=== PATIENT | female | born 1995 | race Caucasian/White ===

== ENCOUNTER 2023-07-02 19:32 | Emergency (ER) | payer OTHER, SELFPAY ==
[2023-07-02 19:33] VITALS: BP 130/94; PULSE 95; RESP 16; TEMP 35.9; O2SAT 99; BMI 26.8
--- NOTE | 2023-07-02 19:46 | US_ITS ---
INDICATION: bleeding EXAMINATION: US OB Transvaginal TECHNIQUE: Transvaginal (for optimal evaluation of the adnexa) pelvic ultrasound was performed. Grayscale, spectral waveform, and color flow Doppler evaluation of the adnexa. COMPARISON: None. FINDINGS: UTERUS: Measures 9.3 cm in length.. RIGHT OVARY: Measures 2.7 x 1.7 x 1.8 cm. Cystic area adjacent to the right ovary measures 1.9 x 1.6 cm.. LEFT OVARY: Measures 3.1 x 2.3 x 1.8 cm. Normal. FREE FLUID: None. INTRAUTERINE GESTATIONAL SAC(s) (size/shape): Possible gestational sac seen in the lower uterine segment with mean sac diameter of 0.7 cm. YOLK SAC: Not identified POLE: Not identified ESTIMATED GESTATION AGE: 5 weeks and 3 days. US/Transvaginal w/Preg US IMPRESSION: Intrauterine of uncertain viability. There is an intrauterine gestational sac abnormally positioned in the lower uterine segment with no yolk sac or embryo. Recommend serial beta hCGs and follow-up OB ultrasound in 1-2 weeks. 1.9 cm cystic lesion adjacent to the right ovary could represent a paraovarian cyst. Recommend close attention on follow-up ultrasound. Electronically Signed: John Lim MD at 23:35 EST ,
--- NOTE | 2023-07-02 19:47 | ED.VIS.FEGU ---
HPI HPI - Female History of Present Illness Chief Complaint: Vag Bld, Preg Informant: patient Narrative Narrative: Patient presents secondary to vaginal bleeding. She is currently 7 weeks with her first . She noted some very light spotting yesterday. She had some darker blood this morning then this evening had bright red blood with clots. She is having some cramping. She is scheduled to see the [facility] office this coming Monday. She is unsure of her blood type. PFSH PFSH Medical History ACL tear Asthma Home Medications tramadol 50 mg tablet 50 mg PO Q8H PRN pain #14 tabs 07/02/23 [Rx Last Taken Unknown] Allergy/AdvReac Type Severity Reaction Status Date / Time Sulfa (Sulfonamide Allergy Shortness Verified 07/02/23 19:33 Antibiotics) of breath Surgical History Hx of tonsillectomy Social History Smoking Status: Never smoker ROS ROS ED Constitutional Constitutional ED: Denies chills or fever(s) ENT ENT ED: Denies rhinorrhea or sore throat Cardiovascular Cardiovascular: Denies chest pain Respiratory/Chest Respiratory/Chest: Denies cough or dyspnea Gastrointestinal Gastrointestinal: Reports abdominal pain and nausea; Denies diarrhea or vomiting Genitourinary Genitourinary ED: Denies dysuria Musculoskeletal Musculoskeletal: Denies back pain or extremity pain Integumentary Denies Abrasions or rash Neurologic Neurologic: Denies headache(s) or weakness Psychiatric Psychiatric: Denies anxiety or depression Allergic/Immunologic Allergic/Immunologic ED: Denies lip swelling or urticaria EXAM Physical Exam Const Vital Signs: 07/02/23 19:33 07/02/23 23:21 Temperature 96.7 F L Temperature Source Temporal Pulse Rate 95 75 Respiratory Rate 16 15 Blood Pressure 130/94 H 120/73 Blood Pressure Mean 106 88 Pulse Ox 99 97 Oxygen Delivery Method Room Air Positive well nourished and well developed General Appearance ED: well developed HEENT Reports moist mucous membranes Eyes EOMs intact bilaterally Chest Wall inspection of chest normal and palpation of chest normal Resp normal respiratory effort and clear to auscultation bilaterally Cardio regular rate and regular rhythm GI soft to palpation and non-tender Auscultation: normoactive bowel sounds Extremity normal to inspection Neuro oriented x3 and no sensory deficits noted Motor Exam: strength 5/5 throughout Psych Mood & Affect: anxious and tearful Skin no rashes or lesions noted MDM MDM MDM Narrative Medical decision making narrative: Labwork obtained to evaluate for leukocytosis, anemia, and electrolyte derangement. Urinalysis obtained to evaluate for infection/hematuria. Pelvic ultrasound will be obtained given her pain and bleeding. Patient given Tylenol for cramping. History & Record Review Discussion w/independent historian: Patient and Significant other Lab Data Attestation: I reviewed the patient's lab results. Labs: Laboratory Results - last 24 hr 07/02/23 07/02/23 20:15 20:20 HCG, Quant 446 H Urine Color Yellow Urine Clarity Sl. Cloudy Urine pH 6.5 Ur Specific Flushing 1.010 Urine Protein Negative Urine Glucose (UA) Normal Urine Ketones Negative Urine Occult Blood 250 H Urine Nitrite Negative Urine Bilirubin Negative Urine Urobilinogen Normal Ur Leukocyte Esterase Negative Urine RBC 10-25 SEEN Urine WBC 0-5 SEEN Ur Squamous Epith Cells 0-5 SEEN Amorphous Sediment 1+ URATE Urine Bacteria RARE Urine Mucus 0 SEEN Blood Type O POSITIVE Radiography Diagnostic Testing: Clinical Impression(s) from Imaging Studies Obstetrics Ultrasound 07/02/23 19:46 IMPRESSION: Intrauterine of uncertain viability. There is an intrauterine gestational sac abnormally positioned in the lower uterine segment with no yolk sac or embryo. Recommend serial beta hCGs and follow-up OB ultrasound in 1-2 weeks. 1.9 cm cystic lesion adjacent to the right ovary could represent a paraovarian cyst. Recommend close attention on follow-up ultrasound. Electronically Signed: John Lim MD at 23:35 EST , Treatment and Re-Evaluation Narrative: Patient's quant returned at only 446. We did discuss that I believe she is either having a miscarriage or is not as far along as she thought she was. Blood type is O+. Urinalysis reveals rare bacteria with no nitrites. 0-5 white cells noted. With ultrasound reveals what appears to be a gestational sac in the lower uterine segment. Uncertain viability. There is also a 1.9 cm cystic lesion adjacent to the right ovary that could represent a paraovarian cyst. With the patient having evidence of a paraovarian cyst, I did speak with Jeffry Waters nurse incident handler on-call for [facility]. Patient will come back in 2 days for repeat quant and will follow-up with them on Monday or . Return instructions were provided. Patient be given tramadol for cramping and pain. Discharge Plan Triage Chief Complaint: Vag Bld, Preg ED Provider: Sonam Zepeda Dx/Rx/DC Orders Clinical Impression: Threatened miscarriage Instructions: ED Possible Miscarriage ... Prescriptions: New tramadol 50 mg tablet 50 mg PO Q8H PRN (Reason: pain) Qty: 14 0RF Other Ambulatory Orders: hCG Titer Quant., Serum (Routine) Timeframe: 2 Days Facility: [facility] - Location: Laboratory Ordered By: Dr. Sonam Zepeda Primary Care Provider: Care Physician,No Primary Referrals: Magnolia Pickens DO [Med Staff - Active Staff] - 3-5 Days NOT,DEFINED [Non-Staff] - Activity Restrictions/Additional Instructions: As discussed, please return to the hospital on Monday for repeat blood work. The order has been sent to the lab for you. Please call the [facility] group tomorrow. You need to be seen on Monday or for follow-up. Disposition Disposition: Home, Self Care
[2023-07-02] MEDS: Acetaminophen 500 MG Tablet 1000 MG PO (20:20)
[2023-07-02 20:26] LABS: Mucous, Urine 0 SEEN /hpf (<or=2+)
[2023-07-02 20:34] LABS: Color, Urine Yellow (Yellow); Glucose, Dipstick Normal (Normal); Ketone-Dipstick Negative (Negative); Leukocyte Esterase-Dipstick Negative /ul (Negative); Nitrite-Dipstick Negative (Negative); Occult Blood-Urine 250 /ul (Negative); Protein-Dipstick Negative (Negative); Urine Bilirubin Dipstick Negative (Negative); Urine Clarity Sl. Cloudy (Clear); Urine Urobilinogen Normal (Normal); Urine pH 6.5 (5.0 - 8.0)
[2023-07-02 20:39] LABS: Red Blood Cells-Urine 10-25 SEEN /hpf (0-5); Squamous Epithelial Cells - UA 0-5 SEEN /hpf (5-10)
[2023-07-02 20:40] LABS: Amorphous Sediment 1+ URATE; Bacteria RARE /hpf (None Seen); White Blood Cells 0-5 SEEN /hpf (0-5)
[2023-07-02 20:57] LABS: hCG Titer Quant., Serum 446 mIU/mL (1-3)
[2023-07-02 23:21] VITALS: BP 120/73; PULSE 75; RESP 15; O2SAT 97
[2023-07-03] MEDS: traMADol 50 MG Tablet PO (00:11)
[2023-07-03 00:15] VITALS: BP 123/73; PULSE 69; RESP 17; O2SAT 98
== END 2023-07-03 00:25 | disposition home or self-care (01) ==
PROVIDERS: Emergency Provider Emergency Medicine; Visit Provider Emergency Medicine
DX: O20.0 Threatened abortion (principal); Z3A.01 Less than 8 weeks gestation of pregnancy
CPT/HCPCS: 76817; 81001; 84702; 86900; 86901; 99283; A4216